=== PATIENT | female | born 1985 | race Caucasian/White ===

== ENCOUNTER 2019-01-18 14:21 | Inpatient (IN) | payer OTHER ==
[~2019-01-18] VITALS: Ht 165.1 cm; Wt 56.8 kg
[2019-01-18 16:00] VITALS: BP 114/63
--- NOTE | 2019-01-18 17:00 | NUR ---
[place] 33 year old FEMALE admitted to room # 502-1 for stabilization. Reports an addiction to HEROIN, COCAINE, CRYSTAL METH, XANAX last used 12 hours prior to admission. Compliant with admission procedure. Patient denies any anxiety, but is unable to sit still, taps toes to floor continuously, looks about room, unable to focus eyes on nurse during interview. See assessment forms for additional information about patient status.
[2019-01-18 17:06] LABS: BASO % 0.7 % (0.0-1.0); EOS # 0.2 10*3/uL (0.0-0.4); EOS % 2.8 % (1.0-4.0); HEMATOCRIT 41.7 % (37.0-47.0); HEMOGLOBIN 13.6 g/dl (12.0-16.0); LYMPH # 2.3 10*3/uL (1.3-4.4); LYMPH % 40.5 % (27.0-41.0); MEAN CORPUSCULAR HGB 32.3 pg (27.0-31.0); MEAN CORPUSCULAR HGB CONC 32.6 g/dl (33.0-37.0); MONO # 0.3 10*3/uL (0.1-1.0); MONO % 5.7 % (3.0-9.0); NEUT # 2.8 10*3/uL (2.3-7.9); NEUT % 50.1 % (47.0-73.0); PLATELET COUNT AUTOMATED 236 10*3/uL (130-400); RED BLOOD COUNT 4.21 10*6/uL (4.10-5.10); RED CELL DISTRI WIDTH 13.1 % (0-14.5); WHITE BLOOD COUNT 5.7 10*3/uL (4.8-10.8)
--- NOTE | 2019-01-18 17:20 | NUR ---
PT REFUSES FLU VACCINE.
[2019-01-18 17:22] LABS: ALBUMIN 3.7 gm/dl (3.1-4.5); ALKALINE PHOSPHATASE 79 U/L (45-117); BUN 19 mg/dl (7-24); CHLORIDE 106 mmol/L (98-107); CREATININE 0.63 mg/dL (0.55-1.02); SGOT/AST 24 IU/L (3-35); SGPT/ALT 37 U/L (12-78); SODIUM 140 mmol/L (136-145); TOTAL PROTEIN 6.6 gm/dL (6.4-8.2)
[2019-01-18 17:31] LABS: ETHYL ALCOHOL < 3.0 mg/dl (<3); INTERNATIONAL NORM RATIO 0.9 (2.0-3.5)
[2019-01-18 17:49] LABS: BILIRUBIN NEGATIVE (NEGATIVE); BLOOD 3+ (NEGATIVE); CLARITY CLEAR (CLEAR); COLOR YELLOW (YELLOW); GLUCOSE NEGATIVE (NEGATIVE); KETONE NEGATIVE (NEGATIVE); LEUKO ESTERASE NEGATIVE (NEGATIVE); NITRITE NEGATIVE (NEGATIVE); SPECIFIC GRAVITY 1.025 (1.005-1.030)
--- NOTE | 2019-01-18 17:51 | NUR ---
PATIENT MEETS [facility]. CINA=17, CIWA(B)=44. PATIENT WANT TO FOLLOW UP WITH RESIDENTIAL TREATMENT AT [facility], [facility]. 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
[2019-01-18 17:56] LABS: URINE AMPHETAMINES > 1000 (1000ng/ml); URINE BARBITURATES < 200 (200ng/ml); URINE BENZODIAZEPINES > 200 (200ng/ml); URINE CANNABINOIDS (THC) > 50 (50ng/ml); URINE COCAINE > 300 (300ng/ml); URINE METHADONE < 300 (300ng/ml); URINE OPIATES > 300 (300ng/ml)
[2019-01-18 17:58] LABS: URINE PHENCYCLIDINE < 25 (25ng/ml)
[2019-01-18 18:02] LABS: EPITHELIAL CELLS 51-100
[2019-01-18 18:03] LABS: BACTERIA 2+
--- NOTE | 2019-01-18 18:15 | NUR ---
Patient displaying withdrawal symptoms, including: irritability, anxiousness, restlessness and agitation, complicated by impulsive behavior. Scheduled/PRN medications provided, doctor notified of patient's agitation and AMA potential. Will continue to monitor medication effectiveness.
[2019-01-18 20:00] VITALS: BP 114/75
--- NOTE | 2019-01-18 21:15 | NUR ---
MEDICATED WITH DESYREL PER PRN ORDER FOR C/O INAOMNIA.
[2019-01-19] VITALS: BP 110/54
--- NOTE | 2019-01-19 01:45 | NUR ---
MEDICATED WITH BENTYL, REQUIP, ROBAXIN, AND VISTARIL PER PRN ORDERS FOR S/S OF WITHDRAWL.
--- NOTE | 2019-01-19 03:00 | NUR ---
MEDICATIONS GIVEN EARLIER FOR S/S OF WITHDRAWL WERE EFFECTIVE
[2019-01-19 08:00] VITALS: BP 104/57
--- NOTE | 2019-01-19 08:26 | NUR ---
Patient displaying withdrawal symptoms, including: irritability, anxiousness, restlessness and agitation. Scheduled/PRN medications provided, doctor notified of patient's agitation and AMA potential. Will continue to monitor medication effectiveness.
--- NOTE | 2019-01-19 10:15 | NUR ---
N Patient resting. Responding to scheduled medications with fewer complaints of pain and anxiety.
--- NOTE | 2019-01-19 11:24 | NUR ---
[place] STAFF WILL MAKE REFERRAL TO [facility] FOR PATIENT. PATIENT WANTS TO FOLLOW UP WITH RESIDENTIAL TREATMENT. MAGALIS MOSES B.A. 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
[2019-01-19 12:00] VITALS: BP 96/60
--- NOTE | 2019-01-19 15:00 | NUR ---
Patient resting. Responding to scheduled medications with fewer complaints of pain and anxiety.
[2019-01-19 16:00] VITALS: BP 97/46
--- NOTE | 2019-01-19 16:35 | NUR ---
PT SLEEPING. AROUSES EASILY. WILL CONTINUE TO MONITOR.
[2019-01-19 17:27] VITALS: BP 98/54
--- NOTE | 2019-01-19 17:32 | NUR ---
NOTIFIED REGARDING BP 98/54. PT ASYMPTOMATIC. WILL CONTINUE TO MONITOR.
--- NOTE | 2019-01-19 18:21 | NUR ---
SENOKOT GIVEN PER PRN ORDER FOR C/O CONSTIPATION. WILL MONITOR EFFECTIVENESS.
[2019-01-19 20:00] VITALS: BP 105/54
--- NOTE | 2019-01-19 20:35 | NUR ---
24 HR chart check completed.
--- NOTE | 2019-01-19 21:00 | NUR ---
Patient displaying withdrawal symptoms, including: irritability, anxiousness, restlessness and agitation. Scheduled/PRN medications provided, SEE EMAR. Will continue to monitor medication effectiveness.
--- NOTE | 2019-01-19 23:00 | NUR ---
Patient resting. Responding to scheduled medications with fewer complaints of pain and anxiety.
[2019-01-20] VITALS: BP 106/53
--- NOTE | 2019-01-20 | NUR ---
SLEEPING. NO DISTRESS NOTED. RESPIRATIONS EASY. VSS. CALL LIGHT WITHIN REACH
--- NOTE | 2019-01-20 03:00 | NUR ---
Patient sleeping. Responding to scheduled medications with fewer complaints of pain and anxiety.
--- NOTE | 2019-01-20 06:00 | NUR ---
Patient resting. Responding to scheduled medications with fewer complaints of pain and anxiety.
[2019-01-20 08:00] VITALS: BP 93/48
[2019-01-20 12:00] VITALS: BP 107/53
--- NOTE | 2019-01-20 14:31 | NUR ---
PATIENT IS GOING TO [facility] FOR HER AFTERCARE PLAN. PATIENT IS SCHEDULED TO GO ON WEDNESDAY, January UPON DISCHARGE. [place] STAFF WILL SET UP TRANSPORTATION THROUGH HER INSURANCE. PATIENT AGREES AND UNDERSTANDS HER AFTERCARE PLAN. MAGALIS MOSES BA TOWEL WEAVER
[2019-01-20 16:00] VITALS: BP 121/60
--- NOTE | 2019-01-20 18:42 | NUR ---
PT WAS EMOTIONAL THIS MORNING, BUT RESPONDED WELL TO DETOX MEDS AND WAS CALM AND PLEASANT THROUGHOUT THE DAY. GAVE CONTINUED SUPPORT AND ENCOURAGEMENT THROUGHOUT THE DAY. SHE STATES SHE TRULY WANTS TO SUCCEED. LOOKING FORWARD TO TRANSFER TO [facility] TO CONTINUE REHAB.
--- NOTE | 2019-01-20 19:56 | NUR ---
24 HR chart check completed.
[2019-01-20 20:00] VITALS: BP 112/70
[2019-01-21] VITALS: BP 95/44
--- NOTE | 2019-01-21 | NUR ---
Patient resting. Responding to scheduled medications with fewer complaints of pain and anxiety.
--- NOTE | 2019-01-21 06:22 | NUR ---
Patient displaying withdrawal symptoms, including: irritability, anxiousness, restlessness and agitation. Scheduled/PRN medications provided, see emar. Will continue to monitor medication effectiveness.
[2019-01-21 06:49] LABS: BASO % 0.5 % (0.0-1.0); EOS # 0.2 10*3/uL (0.0-0.4); HEMATOCRIT 34.6 % (37.0-47.0); HEMOGLOBIN 11.2 g/dl (12.0-16.0); LYMPH # 2.7 10*3/uL (1.3-4.4); LYMPH % 47.8 % (27.0-41.0); MEAN CORPUSCULAR HGB 31.7 pg (27.0-31.0); MEAN CORPUSCULAR HGB CONC 32.4 g/dl (33.0-37.0); MEAN PLATELET VOLUME 10.4 fl (9.6-12.3); MONO # 0.3 10*3/uL (0.1-1.0); MONO % 4.5 % (3.0-9.0); NEUT # 2.5 10*3/uL (2.3-7.9); PLATELET COUNT AUTOMATED 203 10*3/uL (130-400); RED BLOOD COUNT 3.53 10*6/uL (4.10-5.10); RED CELL DISTRI WIDTH 12.8 % (0-14.5); WHITE BLOOD COUNT 5.6 10*3/uL (4.8-10.8)
[2019-01-21 06:51] LABS: CREATININE 0.66 mg/dL (0.55-1.02)
[2019-01-21 08:00] VITALS: BP 101/44
--- NOTE | 2019-01-21 09:56 | NUR ---
VISTARIL GIVEN FOR C/O ANXIETY. WILL MONITOR.
--- NOTE | 2019-01-21 11:00 | NUR ---
VISTARIL EFFECTIVE PERPT.
[2019-01-21 12:00] VITALS: BP 119/74
--- NOTE | 2019-01-21 15:50 | NUR ---
NOTIFIED DR. PELAEZ THAT PT WAS FOUND OFF THE FLOOR OUTSIDE. HE SAID SPEAK WITH THE PT AND LET HER KNOW IF IT HAPPENS AGAIN, SHE WILL BE DISMISSED FROM THE PROGRAM.
[2019-01-21 16:00] VITALS: BP 108/60
--- NOTE | 2019-01-21 16:15 | NUR ---
SPOKE WITH DR. WAYNE ABOUT PT LEAVING THE FLOOR. I WAS IN THE PT'S ROOM WITH NURSING VEHICLE INSURANCE AGENT AND SECURITY. VEHICLE INSURANCE AGENT TOLD PT THE POLICY WAS NOT TO LEAVE THE FLOOR, PT AND FRIEND ACTED THEY WERE BOTH HIGH ON SOMETHING. NOTIFIED DR. WAYNE OF THIS WELL.
--- NOTE | 2019-01-21 16:58 | NUR ---
[facility] Discharge instructions reviewed with patient/family. Patient receptive and verbalizes understanding. Follow-up care arranged. Written instructions given to patient/family. JUAN JOSE CRUZ
== END 2019-01-21 16:58 | disposition other institution (70) | DRG 773 ==
LOC: 5E 14:21
PROVIDERS: Internal Medicine; ADMIT Family Medicine
DX: F11.23 Opioid dependence with withdrawal (principal); F15.10 Other stimulant abuse, uncomplicated; F13.230 Sedative, hypnotic or anxiolytic dependence with withdrawal, uncomplicated; R31.1 Benign essential microscopic hematuria; R82.71 Bacteriuria; E44.0 Moderate protein-calorie malnutrition; F17.210 Nicotine dependence, cigarettes, uncomplicated; F14.10 Cocaine abuse, uncomplicated; Z71.6 Tobacco abuse counseling; Z81.8 Family history of other mental and behavioral disorders; Z68.20 Body mass index [BMI] 20.0-20.9, adult

== ENCOUNTER 2019-05-01 12:46 | Inpatient (IN) | payer OTHER ==
[~2019-05-01] VITALS: Ht 165.1 cm; Wt 57.4 kg
[2019-05-01 14:00] VITALS: BP 108/69
--- NOTE | 2019-05-01 14:00 | NUR ---
A 33, admitted to , under the services of AGUSTIN Kohli DO with a diagnosis of OPIATE WITHDRAWL. Chief complaint is ADDICTION. Patient arrived via ambulatory from [place]. Monitor applied. Initial assessment completed. Vital signs taken and recorded. AGUSTIN KOHLI DO notified of admission to the unit. Orders received. See assessment for past medical history, medications and allergies. Patient and/or family oriented to unit. [address] visitation policy reviewed. Clothing/patient valuable form completed. BRAD BRADSHAW
--- NOTE | 2019-05-01 14:09 | NUR ---
PATIENT MEETS [facility]. CINA=17. CIWA(B)=43. PATIENT WANT TO GO TO [facility] FOR OUTPATIENT TREATMENT. 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
--- NOTE | 2019-05-01 16:00 | NUR ---
DR MENA AWARE THAT PT DOES NOT HAVE AN IV AND HAS CLAIMED SHE WILL GO OUTSIDE AND USE DRUGS IF HER "FING NURSE" DOES NOT GET INTO THE ROOM SOON WITH HER MEDS.
[2019-05-01 16:10] LABS: BASO % 0.5 % (0.0-1.0); EOS # 0.1 10*3/uL (0.0-0.4); EOS % 1.4 % (1.0-4.0); HEMATOCRIT 40.1 % (37.0-47.0); LYMPH # 2.4 10*3/uL (1.3-4.4); LYMPH % 39.3 % (27.0-41.0); MEAN CELL VOLUME 95.9 fl (81.0-99.0); MEAN CORPUSCULAR HGB 31.1 pg (27.0-31.0); MEAN CORPUSCULAR HGB CONC 32.4 g/dl (33.0-37.0); MEAN PLATELET VOLUME 9.6 fl (9.6-12.3); MONO # 0.3 10*3/uL (0.1-1.0); MONO % 4.8 % (3.0-9.0); NEUT # 3.3 10*3/uL (2.3-7.9); NEUT % 53.8 % (47.0-73.0); PLATELET COUNT AUTOMATED 235 10*3/uL (130-400); RED BLOOD COUNT 4.18 10*6/uL (4.10-5.10); RED CELL DISTRI WIDTH 13.1 % (0-14.5); WHITE BLOOD COUNT 6.2 10*3/uL (4.8-10.8)
[2019-05-01 16:34] LABS: ALBUMIN 3.8 gm/dl (3.1-4.5); ALKALINE PHOSPHATASE 59 U/L (45-117); BUN 16 mg/dl (7-24); CHLORIDE 107 mmol/L (98-107); CREATININE 0.77 mg/dL (0.55-1.02); POTASSIUM 3.4 mmol/L (3.5-5.1); SGOT/AST 20 IU/L (3-35); SGPT/ALT 28 U/L (12-78); SODIUM 140 mmol/L (136-145); TOTAL PROTEIN 7.2 gm/dL (6.4-8.2)
[2019-05-01 16:39] LABS: ETHYL ALCOHOL < 3.0 mg/dl (<3)
[2019-05-01 16:53] LABS: BILIRUBIN NEGATIVE (NEGATIVE); BLOOD 2+ (NEGATIVE); CLARITY CLOUDY (CLEAR); COLOR YELLOW (YELLOW); GLUCOSE NEGATIVE (NEGATIVE); KETONE 1+ (NEGATIVE); LEUKO ESTERASE NEGATIVE (NEGATIVE); NITRITE POSITIVE (NEGATIVE); SPECIFIC GRAVITY >= 1.030 (1.005-1.030); UROBILINOGEN 0.2 E.U./dl (0.2-1.0)
[2019-05-01 17:03] LABS: BACTERIA 3+
[2019-05-01 17:40] LABS: URINE AMPHETAMINES < 1000 (1000ng/ml); URINE BARBITURATES < 200 (200ng/ml); URINE BENZODIAZEPINES > 200 (200ng/ml); URINE CANNABINOIDS (THC) > 50 (50ng/ml); URINE COCAINE > 300 (300ng/ml); URINE METHADONE < 300 (300ng/ml); URINE OPIATES < 300 (300ng/ml); URINE PHENCYCLIDINE < 25 (25ng/ml)
--- NOTE | 2019-05-01 19:20 | NUR ---
IN TO SEE PT. ASSESSMENT COMPLETE. BOYFRIEND AT BEDSIDE. PT WAS HARD TO AROUSE. SHE STATED SHE HASN'T GOT ANY SLEEP. NO COMPLAINTS AT THIS TIME. PT STATES SHE DOES NOT NEED ANYTHING AT THIS TIME. CALL LIGHT IN REACH. WILL MONITOR.
[2019-05-02] VITALS: BP 111/54; BP 75/38
--- NOTE | 2019-05-02 | NUR ---
PT HAS BEEN SLEEPING ON AND OFF ALL NIGHT. RESPIRATIONS EASY AND REGULAR. NO S/S OF DISTRESS NOTED. CALL LIGHT IN REACH. WILL MONITOR.
--- NOTE | 2019-05-02 04:00 | NUR ---
24 HR chart check completed.
[2019-05-02 06:19] LABS: BASO % 0.5 % (0.0-1.0); EOS # 0.2 10*3/uL (0.0-0.4); EOS % 3.1 % (1.0-4.0); HEMATOCRIT 35.8 % (37.0-47.0); HEMOGLOBIN 11.6 g/dl (12.0-16.0); LYMPH % 54.3 % (27.0-41.0); MEAN CELL VOLUME 95.2 fl (81.0-99.0); MEAN CORPUSCULAR HGB 30.9 pg (27.0-31.0); MEAN CORPUSCULAR HGB CONC 32.4 g/dl (33.0-37.0); MEAN PLATELET VOLUME 9.9 fl (9.6-12.3); MONO # 0.3 10*3/uL (0.1-1.0); MONO % 5.1 % (3.0-9.0); NEUT % 36.8 % (47.0-73.0); PLATELET COUNT AUTOMATED 217 10*3/uL (130-400); RED BLOOD COUNT 3.76 10*6/uL (4.10-5.10); WHITE BLOOD COUNT 5.5 10*3/uL (4.8-10.8)
[2019-05-02 06:47] LABS: ALBUMIN 3.1 gm/dl (3.1-4.5); ALKALINE PHOSPHATASE 60 U/L (45-117); BUN 14 mg/dl (7-24); CHLORIDE 109 mmol/L (98-107); CREATININE 0.79 mg/dL (0.55-1.02); POTASSIUM 3.5 mmol/L (3.5-5.1); SGOT/AST 15 IU/L (3-35); SGPT/ALT 25 U/L (12-78); SODIUM 140 mmol/L (136-145); TOTAL PROTEIN 5.9 gm/dL (6.4-8.2)
[2019-05-02 08:00] VITALS: BP 110/60
[2019-05-02 12:00] VITALS: BP 95/62
--- NOTE | 2019-05-02 12:36 | NUR ---
PATIENT WILL BE FOLLOWING UP WITH [facility] FOR HER SUBOXONE TREATMENT AND PATIENT WAS REFERRED TO [facility] [place] TO CONTINUE HER BENZO TAPER. PATIENT'S FIRST APPOINTMENT AT [facility] WILL BE April AT 8:30AM AND THEN HER SECOND APPOINTMENT WILL BE April AT 10:00AM. OR STAFF WILL PROVIDE PATIENT WITH HER UPCOMING APPOINTMENTS. PATIENT AGREES AND UNDERSTANDS HER AFTERCARE PLAN. MAGALIS MOSES B.A. ROTARY BAR OPERATOR
[2019-05-02 16:00] VITALS: BP 107/52
--- NOTE | 2019-05-02 18:45 | NUR ---
ROBAXIN GIVEN FOR C/O MUSCLE ACHES, REQUIP GIVEN FOR C/O RESTLESS LEGS, VISTARIL GIVEN FOR C/O ANXIETY.
[2019-05-02 20:00] VITALS: BP 107/59
--- NOTE | 2019-05-02 23:41 | NUR ---
LIBRIUM GIVEN PER ORDER FOR ANXIETY. EXPLAINED PRN MEDICATIONS AND PATIENT OK WITH GET THEM SCHEDULED. PT. SAID SHE IS GOING TO TAKE AND SHOWER AND WILL PUT HER CALL LIGHT ON WHEN SHE IS DONE.
[2019-05-03] VITALS: BP 115/67
--- NOTE | 2019-05-03 00:25 | NUR ---
robaxin and vistaril given per order for muscle aches and anxiety. see mar.
--- NOTE | 2019-05-03 01:00 | NUR ---
24 HR chart check completed.
--- NOTE | 2019-05-03 01:00 | NUR ---
LIBRIUM, VISTARTIL AND ROBAXIN HELPING WITH ANXIETY, USCLE ACHES
--- NOTE | 2019-05-03 04:10 | NUR ---
DURING PATIENT ROUNDS FOUND MALE LAYING IN BED WITH PATIENT SLEEPING. CALLED SECURITY AND THEY CAME TO FLOOR AND CAME INTO PATIENT ROOM TO ESCORT VISITOR OUT. CALLED DR. HUTCHISON AND SAID "I'LL LET DAY TEAM KNOW SHE HAD A VISITOR DURING THE NIGHT AND LET THEM DEAL WITH IT". VISITOR COLLECTED HIS BELONGINGS AND SAID HE WOULD BE BACK AND HE WAS NOTIFIED THAT VISITING HOURS ARE AT 9AM.
--- NOTE | 2019-05-03 04:20 | NUR ---
CALLED AND NOTIFIED NURSING RECORDS ANALYSIS MANAGER OF THE VISITOR.
--- NOTE | 2019-05-03 04:40 | NUR ---
SLEEPING. SELF ONLY IN ROOM. NO ACUTE DISTRESS NOTED.
--- NOTE | 2019-05-03 05:27 | NUR ---
sleeping not other visitors present in room.
[2019-05-03 07:45] VITALS: BP 100/60
[2019-05-03] MEDS ORDERED: CHLORDIAZEPOXID25 M1 PO (08:34)
[2019-05-03] MEDS ORDERED: METHOCARBAMOL750 M1 PO (08:34)
[2019-05-03] MEDS ORDERED: ZOFRAN4 MG PO (08:34)
[2019-05-03] MEDS ORDERED: DICYCLOMINE HCL20 MG PO (08:34)
--- NOTE | 2019-05-03 08:34 | NUR ---
PATIENT COMPLAINS OF ACHINESS,MUSCLE CRAMPING,RESTLESS LEG AND INCREASED NERVOUSNESS. GIVEN ROBAXIN, VISTARIL, AND REQUIP ORDERED . PATIENT IS SITTING UP IN BED NO OTHER COMPLAINTS AT THIS TIME. GITA WEBER OPAL
--- NOTE | 2019-05-03 10:24 | NUR ---
[facility] Discharge instructions reviewed with patient/family. Patient receptive and verbalizes understanding. Follow-up care arranged. Written instructions given to patient/family. JUAN JOSE CRUZ
== END 2019-05-03 10:24 | disposition home or self-care (01) | DRG 425 ==
LOC: 4E 12:46
PROVIDERS: Family Medicine; Internal Medicine; ADMIT Internal Medicine
DX: E87.6 Hypokalemia (principal); F13.230 Sedative, hypnotic or anxiolytic dependence with withdrawal, uncomplicated; F19.10 Other psychoactive substance abuse, uncomplicated; F11.10 Opioid abuse, uncomplicated; F44.0 Dissociative amnesia; F15.10 Other stimulant abuse, uncomplicated; D64.9 Anemia, unspecified; F41.9 Anxiety disorder, unspecified; F14.90 Cocaine use, unspecified, uncomplicated; E16.2 Hypoglycemia, unspecified; E44.0 Moderate protein-calorie malnutrition; Z71.6 Tobacco abuse counseling; Z81.8 Family history of other mental and behavioral disorders; Z68.21 Body mass index [BMI] 21.0-21.9, adult